=== PATIENT | male | born 1960 | race Caucasian/White ===

== ENCOUNTER 2016-10-10 12:59 | Emergency (ER) | payer MEDICAID | END 2016-10-10 15:15 | disposition home or self-care (01) | LOC: D.ER 12:59 | DX: F41.9 Anxiety disorder, unspecified (principal); G89.29 Other chronic pain; I10 Essential (primary) hypertension; F32.9 Major depressive disorder, single episode, unspecified; F17.200 Nicotine dependence, unspecified, uncomplicated ==